=== PATIENT | male | born 1965 | race Caucasian/White ===

== ENCOUNTER 2024-03-19 09:30 | Outpatient (RCR) | payer BC, SELFPAY ==
--- NOTE | 2024-04-01 09:26 | ONC.NURNOTE ---
Dx: Malignant neoplasm of the tongue
== END 2024-09-15 23:59 | disposition home or self-care (01) ==
LOC: CCIC 09:30
PROVIDERS: Visit Provider Clinical Nurse Specialist
DX: C02.9 Malignant neoplasm of tongue, unspecified (principal)
CPT/HCPCS: 99211